=== PATIENT | female | born 1945 | race Two or more races ===

== ENCOUNTER 2022-05-03 09:47 | Outpatient (CLI) | payer OTHER | END 2022-05-03 09:56 | disposition home or self-care (01) | LOC: RX STUDY 09:47 | PROVIDERS: ATTEND Internal Medicine Gastroenterology | DX: R13.10 Dysphagia, unspecified (principal) ==

== ENCOUNTER 2022-11-02 05:20 | Day surgery (SDC) | payer OTHER ==
[~2022-11-02] VITALS: Ht 152.4 cm; Wt 64.0 kg
[~2022-11-02 05:20] MED LIST: ALLERG PO; CARAF PO; CENTRUM PO; CRESTOR10 MG PO; DIOVAN320 MG PO; DOXAZOSIN MESYLA4 MG PO; NORVASC2.5 MG PO; PEPCID AC20 MG PO; VITAMIN D3 PO
== END 2022-11-02 15:55 | disposition home or self-care (01) ==
LOC: CIR.AMB 05:20
PROVIDERS: ATTEND Colon & Rectal Surgery
DX: N81.6 Rectocele (principal); R15.9 Full incontinence of feces; Z20.822 Contact with and (suspected) exposure to COVID-19; I10 Essential (primary) hypertension

== ENCOUNTER 2022-11-03 08:33 | Emergency (ER) | payer OTHER ==
[~2022-11-03] VITALS: Ht 152.4 cm; Wt 64.4 kg
== END 2022-11-03 10:05 | disposition home or self-care (01) ==
LOC: ER 08:33
DX: T83.098A Other mechanical complication of other urinary catheter, initial encounter (principal); E78.00 Pure hypercholesterolemia, unspecified; I10 Essential (primary) hypertension